=== PATIENT | male | born 1945 | race Caucasian/White ===

== ENCOUNTER 2023-03-25 16:30 | Emergency (ER) | payer OTHER ==
[~2023-03-25] VITALS: Ht 165.1 cm; Wt 127.0 kg
[2023-03-25 17:14] LABS: INFLUENZA TYPE B Negative For Type B (NEGATIVE)
[2023-03-25 17:32] LABS: INFLUENZA TYPE A Positive For Type A (NEGATIVE); SARS-CoV-2, RNA, NAAT POSITIVE SARS CoV-2 (NEGATIVE)
[2023-03-25 17:38] LABS: RAPID GROUP A STREP positive (NEGATIVE)
[2023-03-25] MEDS ORDERED: OSEL75 PO (18:35)
[2023-03-25] MEDS ORDERED: OSELTAMIVIR PHOSPHATE 75 MG CAP PO ONE (19:00)
[2023-03-25 20:03] VITALS: BP 105/54; PULSE 100; RESP 20; O2SAT 96
== END 2023-03-25 20:06 | disposition home or self-care (01) ==
LOC: EDH 16:30
DX: J10.1 Influenza due to other identified influenza virus with other respiratory manifestations (principal); R50.9 Fever, unspecified; J44.9 Chronic obstructive pulmonary disease, unspecified; I10 Essential (primary) hypertension; Z20.822 Contact with and (suspected) exposure to COVID-19
CPT/HCPCS: 71045; 87635; 87804; 87880